=== PATIENT | female | born 1955 | race Caucasian/White ===

== ENCOUNTER 2016-07-10 11:51 | Emergency (ER) | payer OTHER ==
[~2016-07-10] VITALS: Ht 175.3 cm; Wt 125.0 kg
[~2016-07-10 11:51] MED LIST: BET80 PO; METO-272 PO; MULT1CAP33 PO; RIVA20TA PO
[2016-07-10 11:54] VITALS: BP 153/100; PULSE 57; RESP 12; O2SAT 95
--- NOTE | 2016-07-10 12:03 | ED.REPORT ---
HPI-General Illness Date of Service Jul 10, 2016 ED Provider: Armando Hathaway MD Pt is a 60 year old female with a history of frequent pneumonia and asthma who was sent to the ED from with concerns for chest pain and a cough that started yesterday. She describes the pain as a pressure that is exacerbated with coughing. Pt states that she has had a cough since May, and she is bringing up a yellow sputum. She reports that she has a pneumonia earlier this year, and has had respiratory problems since then. Pt admits to a low grade fever and chills. She denies taking any medications for this issue, she is using her albuterol inhaler as instructed without any alleviation of her symptoms. She denies any history of blood clots or any recent long periods of immobilization. Nursing Notes Stated Complaint: CHEST PAIN Chief Complaint: Respiratory Complaints Nursing Notes Reviewed: Yes Allergies: Coded Allergies: Wasp (Verified Allergy, Severe, Anaphylaxis, 03/09/16) tree and shrub pollen (Verified Allergy, Severe, Shortness of Breath, 03/09) [place] Tree (Verified Allergy, Intermediate, 03/09/16) SETS OF ASTHMA codeine (Verified Allergy, Unknown, 03/09/16) hypes up patient makes her feel miserable - "anxiety attack" per patient cyclobenzaprine (Verified Allergy, Unknown, Rash, 03/09/16) rash/cellulitis gabapentin (Verified Allergy, Unknown, Rash, 03/09/16) cellulitis gatifloxacin (Verified Allergy, Unknown, Anaphylaxis, 03/09/16) lidocaine (Verified Allergy, Unknown, 03/09/16) as topical or injection lidocaine wears off patient experiences nerve pain morphine (Verified Allergy, Unknown, 03/09/16) Anxiety provoking - attempts to leave - Hullucnations - cardiac arrest streptomycin (Verified Allergy, Unknown, 03/09/16) Grass (Verified Adverse Reaction, Intermediate, 03/09/16) SETS OFF ASTHMA meperidine (Verified Adverse Reaction, Intermediate, 03/09/16) pt tried to leave the bed - had to be restrained Opioids-Meperidine and Related (Verified Adverse Reaction, Unknown, agitation/hullucinations, 03/09/16) Does OK with diluadid - Some opiods are listed on allergies - OK with Propofol for a cardioversion Scheduled Metoprolol Succinate ER (Metoprolol Succinate ER) 50 Mg Tab.er.24h 25 MG PO BID Multivitamin (Multivitamins) 1 Each Capsule 1 EACH PO DAILY Prednisone (PredniSONE) 20 Mg Tablet 40 MG PO DAILY Rivaroxaban (Xarelto) 20 Mg Tablet PO DAILY Sotalol (Betapace) 80 Mg Tablet 120 MG PO BID Scheduled PRN Benzonatate (Tessalon Perle) 100 Mg Capsule 100 MG PO TID PRN PRN For Cough General Time Seen by MD: 12:00 Chief Complaint Chest pain Hx Obtained From: Patient Arrived By: Walk-in Sudden in Onset?: Yes Symptom Duration: Since onset Location: : Chest Quality: Painful Severity: Current: Mild Severity: Maximum: Mild Similar Sx Previous: Yes Past Medical History Patient History: Patient reports no known family medical history. Past Medical History A-fib status post cardioversion Prior cardiac ablation [facility] Reports: Asthma, GERD, Hypertension Past Surgical History Reports: Hip replacement Smoking History Never Smoker Social History Alcohol Use: Denies alcohol use Drug Use: Denies drug use Ambulatory Status Independent Review of Systems Full Review of Systems Constitutional: Denies: Chills, Fever, Malaise, Weakness - generalized Respiratory: Reports: Non-productive cough, Denies: Shortness of breath, Wheezing Cardiovascular: Reports: Chest pain, Denies: Syncope GI: Denies: Abdominal pain, Constipation, Diarrhea, Nausea, Vomiting Female: Denies: Dysuria, Flank pain, Urinary frequency, Urinary urgency Musculoskeletal: Denies: Back pain, Extremity pain, Neck pain Skin: Denies Diaphoresis, Denies Rash Neurologic: Denies: Change LOC, Dizziness, Headache, Seizure, Syncope, Weakness Complete sys rev & neg: except as marked. Physical Exam Vital Signs Vital Signs Date Time Temp Pulse Resp B/P Pulse Ox O2 Delivery O2 Flow Rate FiO2 07/10/16 15:34 36.7 61 16 133/65 94 Room Air 07/10/16 13:52 36.4 58 17 135/81 97 Room Air 07/10/16 11:54 37.0 57 12 153/100 95 Room Air Initial VS: Reviewed General/Constitutional: Well-developed, Well-nourished Head / Eyes: Atraumatic, Normocephalic, PERRL ENT: Mucous membranes moist, Conjunctiva normal, No scleral icterus Neck: Supple, Non-tender, Full range of motion Abdomen / GI: Soft, Non-tender, No guarding, No rebound, No distention Skin: Warm, Dry, No cyanosis Neurologic: Alert, Oriented, Nonfocal Psychiatric: Mood/affect normal, Behavior normal, Normal thought content Respiratory / Chest: Atraumatic, No respiratory distress Chest pain is reproducible with palpation to the anterior chest wall Coarse, dry sounding cough Good air movement throughout both lung shannon No focal findings Cardiovascular: Heart rate NL, Regular rhythm, Heart sounds NL, No gallop, No murmurs, No rubs Trace pitting edema bilaterally No calf tenderness Good dorsalis pedis pulses Interpretation & Diagnostics Lab Results Interpretation Result Diagram: 07/10/16 1258 07/10/16 1258 Test 07/10/16 00:00 07/10/16 12:58 Troponin T < 0.010ug/L (0.0-0.011) White Blood Count 5.8th/mm3 (3.8-10.1) Red Blood Count 4.75mil/mm3 (3.90-5.20) Hemoglobin 14.4g/dL (12.0-15.6) Hematocrit 43.4% (35.0-46.0) Mean Corpuscular Volume 91.4fL (81-100) Mean Corpuscular Hemoglobin 30.3pg (27.0-35.0) Mean Corpuscular Hemoglobin Concent 33.2% (32.0-37.0) Red Cell Distribution Width 13.1% (12.3-15.4) Platelet Count 219bil/L (150-400) Neutrophils (%) (Auto) 48.3% (40-74) Lymphocytes (%) (Auto) 32.2% (14-46) Monocytes (%) (Auto) 13.6% (4-12) Eosinophils (%) (Auto) 4.7% (0-5) Basophils (%) (Auto) 0.9% (0-3) Hold Urine Received (Received) Sodium Level 139mEq/L (134-144) Potassium Level 4.4mEq/L (3.5-5.2) Chloride Level 101mEq/L (97-108) Carbon Dioxide Level 27mmol/L (18-29) Blood Urea Nitrogen 12mg/dL (6-24) Creatinine 0.68mg/dL (0.57-1.00) Estimat Glomerular Filtration Rate 127mL/min (>59) Glucose Level 97mg/dL (60-99) Calcium Level 9.8mg/dL (8.5-10.1) Total Bilirubin 0.8mg/dL (0.0-1.2) Aspartate Amino Transf (AST/SGOT) 27U/L (0-50) Alanine Aminotransferase (ALT/SGPT) 25U/L (0-32) Alkaline Phosphatase 81U/L (25-165) Total Protein 7.3g/dL (6.4-8.4) Albumin 3.9g/dL (3.4-5.0) ECG Interpretation ECG Interpretation: EKG OBTAINED FROM Bradycardic - 55 Normal axis and intervals No ST elevation No T wave abnormalities When compared to prior, dated 04/14/16, no acute changes Time: 11:53 Interpreted by: ED physician Repeat ECG: Repeat ECG unchanged X-Ray Chest Interpretation Chest Xray Interpretation: IMPRESSION: No acute cardiopulmonary disease process. Dictated by: Earline Stewart MD, PhD on 07/10/2016 at 13:01 Interpretation / Wet Read by: Interpret - Radiologist Re-Eval/Medical Decision Med Decision/Clinical Course Pt is a 60 year old female with a history of frequent pneumonia and asthma who was sent to the ED from with concerns for chest pain and a cough that started yesterday. She describes the pain as a pressure that is exacerbated with coughing. Pt states that she has had a cough since May, and she is bringing up a yellow sputum. The patient is afebrile stable vital signs. Serial EKGs obtained at urgent care and here in the emergency department today them straight acute ischemic changes. The patient states that her pain has occurred in the setting of persistent cough. CXR: Obtained, reviewed and interpreted by myself shows no evidence of acute infiltrates, effusions or pneumothorax. Cardiac and mediastinal silhouette normal. No bony or soft tissue abnormalities. Here in the emergency department the patient was treated with prednisone and Tessalon. She reported symptomatic improvement. CBC, CMP were unremarkable. Troponin was negative. The patient's pain was reproducible with palpation about the chest wall. The presentation is most consistent with musculoskeletal chest pain in setting of persistent cough consistent with bronchitis. She reports a history of reactive airway disease and bronchitis and similar episodes in the past. She has no cardiac history. Additional cardiac workup is reassuring against acute coronary syndrome. She has no recent major pulmonary embolus risk factors and her examination is not suggestive of DVT. I do not feel that workup for pulmonary abuse and is indicated. I feel that the patient is appropriate for discharge home. She will be treated with a course of prednisone and Tessalon for cough. She will use her rescue inhaler as needed. Follow-up and return precautions were reviewed in detail she was discharged in good condition. She verbalized understanding and agreement with the plan. Source of Hx: Old records Time of Eval: 13:58 Re-Evaluation/Progress Note: Pt is rechecked and informed of her imaging results and the plan to discharge her at this time. She understands and agrees, all questions are addressed. Counseled Regarding: Diagnosis, Lab results, When/why to return to ED Discharge & Departure Primary Impression: Acute bronchitis Bronchitis organism: unspecified organism Qualified Code: J20.9 - Acute bronchitis, unspecified Additional Impressions: Chest wall pain Reactive airway disease Asthma severity: unspecified severity Asthma complication type: uncomplicated Qualified Code: J45.909 - Unspecified asthma, uncomplicated Disposition: Home Discharge Condition All VS Reviewed: Yes Condition: Stable Patient Instructions: Acute Bronchitis (ED) Additional Instructions: Thank you for seeking care at emergency room. It is difficult for us to make definitive diagnoses in the ED but we believe that you are experiencing orchitis. Our primary goal today in the ED was to evaluate you for any life-threatening conditions. Your evaluation was reassuring. You will be discharged with a prescription for prednisone and Tessalon for cough. Please take as directed. Please use your albuterol as needed for wheezing. You should follow-up with your primary doctor in the next week. You should return to the ED immediately if you develop worsening symptoms, fevers, vomiting, cough, shortness of breath, chest pain, lightheadedness, weakness or any other concerning signs or symptoms. Thank you for letting us partake in your care today. Referrals: Kari Villegas MD (PCP) Madelyn Attestation Portions of this note were transcribed by Zina Fiore. I, Dr. Hathaway personally performed the history, physical exam and medical decision-making; I reviewed and confirmed the accuracy of the information in the transcribed note. Signed by: Madelyn Goncalves, 07/10/2016 13:14 copies to: Kari Villegas MD, Beck O MD Jul 10, 2016 12:03 EVAN FIORE Jul 10, 2016 12:43
--- NOTE | 2016-07-10 13:02 | DRSVH ---
PROCEDURE: X-RAY CHEST ONE VIEW, PORTABLE ([id number]) INDICATIONS: COUGH TECHNIQUE: One view of the chest was acquired. COMPARISON: [facility], CR, XR CHEST 1VW (PORTABLE), 02/06/2016, 8:17. FINDINGS: Surgical changes and devices: None. Lungs and pleura: No pleural effusions or pneumothorax. Lungs are clear. Mediastinum: Mediastinal contours appear normal. Heart size is normal. Bones and chest wall: No suspicious bony lesions. Overlying soft tissues appear unremarkable. IMPRESSION: No acute cardiopulmonary disease process. Dictated by: Earline Stewart MD, PhD on 07/10/2016 at 13:01 Approved by: Earline Stewart MD, PhD on 07/10/2016 at 13:01
[2016-07-10] MEDS ORDERED: predniSONE 20 mg Tablet PO ONE (13:10)
[2016-07-10] MEDS ORDERED: PRE20 PO (13:10)
[2016-07-10] MEDS ORDERED: BENZ-12 PO (13:11)
[2016-07-10 13:28] LABS: BASOPHILS % (AUTO) 0.9 % (0-3); EOSINOPHILS % (AUTO) 4.7 % (0-5); MONOCYTES % (AUTO) 13.6 % (4-12); Mean Corpuscular Hemoglobin 30.3 pg (27.0-35.0); Mean Corpuscular Volume 91.4 fL (81-100); NEUTROPHILS % (AUTO) 48.3 % (40-74); Platelet Count 219 bil/L (150-400)
[2016-07-10 13:52] VITALS: BP 135/81; PULSE 58; RESP 17; O2SAT 97
[2016-07-10 15:34] VITALS: BP 133/65; PULSE 61; RESP 16; O2SAT 94
== END 2016-07-10 15:39 | disposition home or self-care (01) ==
LOC: SED 11:51
DX: R07.89 Other chest pain (principal); J20.9 Acute bronchitis, unspecified; J45.909 Unspecified asthma, uncomplicated; I48.91 Unspecified atrial fibrillation; K21.9 Gastro-esophageal reflux disease without esophagitis; I10 Essential (primary) hypertension; Z96.649 Presence of unspecified artificial hip joint; Z87.01 Personal history of pneumonia (recurrent); Z88.5 Allergy status to narcotic agent; Z88.8 Allergy status to other drugs, medicaments and biological substances; Z88.1 Allergy status to other antibiotic agents